=== PATIENT | male | born 1975 | race Caucasian/White ===

== ENCOUNTER 2017-03-07 04:36 | Emergency (ER) | payer BC ==
[~2017-03-07] VITALS: Ht 175.3 cm; Wt 111.1 kg
--- NOTE | ~2017-03-07 | CR72 ---
[facility]. [facility] A Service of [facility] & [facility] RADIOLOGY TEXT RESULTS PATIENT: NICOLE SPAULDING LOCATION: SED : 75 UNIT #: [id number] AGE: [address]: Papi Guerra MD SEX: M ORDER DR: [id number] [place] [id number] E MR#: [id number] Acc #: [id number] NAME: NICOLE SPAULDING : 1975 SEX: M STUDY DATE/TIME: 03/07/2017 4:42 UNIT: SED ROOM: STUDY DESCRIPTION: CR Chest Single View Portable Attending Physician: Papi Guerra M.D. Ordering Physician: Papi Guerra M.D. Primary Care Physician: Epifanio Avila M.D. MEDICAL IMAGING REPORT This report is preliminary unless electronic signature is present. EXAM Portable chest HISTORY Epigastric pain today. FINDINGS A single AP portable view of the chest shows both lungs to be clear. The heart is normal in size. The mediastinal contour is normal. No significant bone abnormalities are seen. IMPRESSION Normal portable chest. Dictated by... Mingo Cohen M.D. THIS IS AN ELECTRONICALLY VERIFIED REPORT Mingo Cohen M.D. at 03/08/2017 4:19 AM ADÁN/katelynn TD: 03/07/2017 09:24 JOB #: [id number] MEDICAL IMAGING REPORT Page 1 of 1
--- NOTE | ~2017-03-07 | EKG ---
PATIENT: NICOLE SPAULDING UNIT #: [id number] Ventricular Rate: 74 BPM Atrial Rate: 74 BPM P-R Interval: 170 ms QRS Duration: 96 ms Q-T Interval: 394 ms QTC Calculation(Bezet): 437 ms P [place]: 25 degrees Calculated R [place]: -21 degrees Diagnosis Line: Normal sinus rhythm Diagnosis Line: Nonspecific T wave abnormality Diagnosis Line: Otherwise normal ECG Diagnosis Line: Diagnosis Line: Confirmed by KARIN HAQUE MD ([id number]) on 03/09/2017 Diagnosis Line: 7:01:48 PM INTERPRETING MD: SHABNAM OSUNA
[~2017-03-07 04:36] MED LIST: HYDROCHLOROTHIA25 MG PO; PRILOSEC40 MG PO
[2017-03-07] MEDS ORDERED: METFORMIN PO (04:53)
[2017-03-07] MEDS ORDERED: LISINOPRIL (04:54)
[2017-03-07] MEDS ORDERED: AMLODIPINE-OLM1 EAC1 (04:54)
[2017-03-07 04:59] LABS: BASOPHIL# 0.1 X10e3 (0-0.3); BASOPHIL% 1.3 % (0-2.5); EOSINOPHIL# 0.2 X10e3 (0-0.7); EOSINOPHIL% 2.2 % (0.0-7.0); HEMATOCRIT 47.6 % (38.0-50.0); HEMOGLOBIN 16.9 gm/dL (13.0-16.0); LYMPHOCYTE# 2.3 X10e3 (1.0-3.5); LYMPHOCYTE% 29.6 % (17.0-45.0); MEAN CELL VOLUME 86.8 FL (83-96); MEAN CORPUSCULAR HEMOGLOBIN 30.7 PG (28-34); MEAN CORPUSCULAR HGB CONC 35.4 g/dL (30-36); MEAN PLATELET VOLUME 8.8 FL (6.5-11.5); MONOCYTE# 0.5 X10e3 (0-1.0); MONOCYTE% 7.1 % (3.0-12.0); NEUTROPHIL# 4.6 X10e3 (1.5-7.1); NEUTROPHIL% 59.8 % (40-75); PLATELET COUNT 219 X10e3 (140-420); RED BLOOD COUNT 5.49 X10e (3.90-5.60); RED CELL DISTRIBUTION WIDTH 13.1 % (11.0-15.5); WHITE BLOOD COUNT 7.7 X10e3 (4.0-10.5)
[2017-03-07 05:03] LABS: DIFF IND NO
[2017-03-07 05:15] LABS: POC - CKMB 1.4 ng/mL (0.0-7.9); POC - MYOGLOBIN 42.8 ng/mL (0.0-169.0); POC - TROPONIN <0.05 ng/mL (<=0.05)
[2017-03-07 05:17] LABS: ALBUMIN SERUM 4.6 g/dL (3.5-5.0); BILIRUBIN,TOTAL 0.9 mg/dL (0.2-2.0); BUN/CREATININE RATIO 13.33; CALCIUM SERUM 9.4 mg/dL (8.4-10.2); CREATININE SERUM 0.9 mg/dL (0.6-1.4); GLOM FILT RATE Estimated 105.7 mL/min (>60); PROTEIN TOTAL SERUM 7.8 g/dL (6.0-8.3)
[2017-03-07 07:02] LABS: POC - CKMB <1.0 ng/mL (0.0-7.9); POC - MYOGLOBIN 30.5 ng/mL (0.0-169.0); POC - TROPONIN <0.05 ng/mL (<=0.05)
== END 2017-03-07 07:03 | disposition home or self-care (01) ==
LOC: SED 04:36
PROVIDERS: Emergency Medicine
DX: R10.13 Epigastric pain (principal); I10 Essential (primary) hypertension; E11.9 Type 2 diabetes mellitus without complications; Z88.0 Allergy status to penicillin; Z79.899 Other long term (current) drug therapy
CPT/HCPCS: 36415; 71010; 80053; 82553; 83690; 83874; 84484; 85025; 93005; 99284